=== PATIENT | male | born 1985 | race Hispanic/Latino ===

== ENCOUNTER 2017-03-26 00:58 | Emergency (ER) | payer SELFPAY ==
[2017-03-26] MEDS ORDERED: HYDROcodone/Acetaminophen 10/325 mg Tablet ONE (02:04)
[2017-03-26] MEDS ORDERED: Adacel (T-DAP) 0.5 ML VIAL ONE (02:04)
[2017-03-26] MEDS ORDERED: CEFAZOLIN/Water 2 GM/20 ML SYRINGE ONE (02:14)
[2017-03-26] MEDS ORDERED: Lidocaine 1% (PF) 30 ML VIAL ONE (02:21)
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
== END 2017-03-26 05:52 | disposition home or self-care (01) ==
LOC: ERS 00:58
DX: S01.21XA Laceration without foreign body of nose, initial encounter (principal); S61.011A Laceration without foreign body of right thumb without damage to nail, initial encounter; F17.210 Nicotine dependence, cigarettes, uncomplicated; W26.0XXA Contact with knife, initial encounter
CPT/HCPCS: 12005; 12013; 90471; 90715; 96374; J2001

== ENCOUNTER 2017-03-31 18:23 | Emergency (ER) | payer SELFPAY | END 2017-03-31 19:30 | disposition home or self-care (01) | LOC: ERS 18:23 | DX: S01.81XD Laceration without foreign body of other part of head, subsequent encounter (principal); S61.411D Laceration without foreign body of right hand, subsequent encounter ==

== ENCOUNTER 2017-04-06 17:42 | Emergency (ER) | payer SELFPAY | END 2017-04-06 19:45 | disposition home or self-care (01) | LOC: ERS 17:42 | DX: S61.011D Laceration without foreign body of right thumb without damage to nail, subsequent encounter (principal); F17.210 Nicotine dependence, cigarettes, uncomplicated ==